=== PATIENT | female | born 1940 | race Caucasian/White ===

== ENCOUNTER 2017-04-25 23:05 | Observation (INO) | payer MEDICARE, OTHER ==
[~2017-04-25] VITALS: Ht 167.6 cm; Wt 87.0 kg
[~2017-04-25 23:05] MED LIST: ACET325 PO; ADVA100A INH; ALBU6.7H INH; APIX5TAB PO; CYMB60CA PO; DETR4CAP PO; DIOV160T8 PO; FENO50TA PO; LEVO100T4 PO; LEVO112T2 PO; MACR100C PO; METO25CR PO; POTA75TA PO; REST0.05 OU; SIMV20 PO
[2017-04-25 23:16] VITALS: BP 141/73; PULSE 82; RESP 22; TEMP 97.6; O2SAT 96
[2017-04-25] MEDS ORDERED: SODIUM CHLORIDE 0.9% FLUSH 10 ML FLUSH IVF PRN (23:45)
[2017-04-25] MEDS ORDERED: LEVO.15 PO (23:46)
[2017-04-25] MEDS ORDERED: VALS160T6 PO (23:46)
[2017-04-25] MEDS ORDERED: METO25TA3 PO (23:46)
[2017-04-25] MEDS ORDERED: APIX5TAB PO (23:46)
[2017-04-25] MEDS ORDERED: ZOCO20TA PO (23:46)
[2017-04-25] MEDS ORDERED: TIOT1AER INH (23:46)
[2017-04-25] MEDS ORDERED: TOLT1TAB16 PO (23:46)
[2017-04-25] MEDS ORDERED: FENO50TA PO (23:46)
[2017-04-25] MEDS ORDERED: CYCL7.5E EACH EYE (23:46)
[2017-04-25] MEDS ORDERED: DULO1CAP3 PO (23:46)
[2017-04-25] MEDS ORDERED: [UNRECOGNIZED DRUG - CODE] (23:46)
[2017-04-25 23:50] VITALS: RESP 16; O2SAT 98
--- NOTE | 2017-04-25 23:51 | PD ---
HPI Chief Complaint: General Weakness Time Seen by Provider: 23:44 Travel History International Travel<30 days: No Contact w/Intl Traveler<30days: No Traveled to known affect area: No History of Present Illness HPI 36-year-old female presents to the emergency department from home by EMS transport after awakening around 10:30 PM with right arm pain and shortness of breath without weakness. Patient had some referred discomfort to her jaw bilaterally. Patient denies any chest pain or pleuritic chest pain. No recent long distance travel protracted bedrest her surgical procedure. Patient has COPD and is on supplemental oxygen 2 L/m all times. Patient states that she was very active today and carried her oxygen tank with right upper extremity that today and thinks that this may have caused her to have arm pain. Patient denies any weakness of the extremity and denies any lower extremity numbness tingling or weakness. Patient's had no paresthesias. Patient's had no dizziness altered mentation visual disturbance or change in her speech. Patient feels back to normal at this time. Patient's had a febrile illness denies dysuria frequency or urgency. Patient's had no injury or fall. Patient does have history of atrial fibrillation hypertension dyslipidemia denies diabetes or tobaccoism. No history of CVA or TIA. Patient does take a look was for her atrial fibrillation. Patient did have an cardiac catheterization in 2009 that showed normal coronary vessels. Patient rates her pain 0/10 intensity. PFSH Past Medical History Narrative Medical arthritis anemia asthma COPD atrial fibrillation dyslipidemia GERD sleep apnea eye surgery breast lumpectomy; no tobacco use: Nursing notes reviewed Hx Anticoagulant Therapy: Yes (Eliquis) Anemia: Yes Arthritis: Yes Atrial Fibrillation: Yes Autoimmune Disease: No Depression: Yes Heart Rhythm Problems: Yes (A. FIB) Cancer: Yes (SKIN) Cardiac Catheterization: Yes Cardiovascular Problems: Yes (AF) High Cholesterol: Yes Chemotherapy: No COPD: Yes Cerebrovascular Accident: No Diabetes: No Diminished Hearing: No Gastrointestinal Disorders: Yes GERD: Yes Glaucoma: No Genitourinary: Yes (URINARY STRESS INCONTINENCE) Hepatitis: No Hiatal Hernia: No Hypertension: Yes Immune Disorder: No Implanted Vascular Access Dvce: No Kidney Stones: Yes (in 1968) Medical other: Yes (GERD) Musculoskeletal: Yes Neurologic: Yes Psychiatric: No Reproductive: No Respiratory: Yes (COPD) Pneumonia: Yes Sleep Apnea: Yes (NO CPAP, USES NASAL OXYGEN) Thyroid Disease: Yes Menopausal: Yes : 3 Para: 3 Past Surgical History AICD: No Arteriovenous Shunt: No Eye Surgery: Yes (MICAELA CATARACT EXTRACT.) Hysterectomy: No Insulin Pump: No Joint Replacement: No Neurologic Surgery: Yes (CERVICAL FUSION x2) Pacemaker: No Other Surgery: Yes (MICAELA BREAST LUMPECTOMY- benign, right heel repair) Social History Alcohol Use: No Tobacco Use: No (quit: 1991, smoked 2 ppd for 32 yrs) Substance Use: No Allergies-Medications (Allergen,Severity, Reaction): Coded Allergies: No Known Allergies (Unverified Adverse Reaction, Unknown, 04/25/17) Reported Meds & Prescriptions Reported Meds & Active Scripts Active Reported Duloxetine DR (Duloxetine HCl) 60 Mg Capdr 60 Mg PO DAILY Stiolto Respimat Inh (Tiotropium-Olodaterol Inh) 2.5-2.5 Mcg/Act Aero 2 Puff INH DAILY Synthroid (Levothyroxine Sodium) 150 Mcg Tab 150 Mcg PO DAILY Pot Citrate-Citric Acid Packet (Potassium Citrate/Citric Acid) 3,300 Mg-1,002 Mg Packet Tolterodine (Tolterodine Tartrate) 2 Mg Tab 2 Mg PO BID Tricor (Fenofibrate) 145 Mg Tab 145 Mg PO DAILY Takw with food. Eliquis (Apixaban) 5 Mg Tab 5 Mg PO BID Valsartan-Hydrochlorothiazide 160-25 Mg Tab 1 Tab PO DAILY Restasis Multidose Opth (Cyclosporine Opth) 0.05% Emul 1 Drop EACH EYE BID Zocor (Simvastatin) 20 Mg Tab 20 Mg PO DAILY Metoprolol Tartrate 25 Mg Tab 25 Mg PO BID Review of Systems Except as stated in HPI: all other systems reviewed are Neg Physical Exam Narrative GENERAL: Well-developed well-nourished female in no acute distress respiratory distress SKIN: Warm and dry. HEAD: Normocephalic. EYES: No scleral icterus. No injection or drainage. NECK: Supple, trachea midline. No JVD or lymphadenopathy. CARDIOVASCULAR: Regular rate and rhythm without murmurs, gallops, or rubs. RESPIRATORY: Breath sounds equal bilaterally. No accessory muscle use. GASTROINTESTINAL: Abdomen soft, non-tender, nondistended. MUSCULOSKELETAL: No cyanosis, or edema. BACK: Nontender without obvious deformity. No CVA tenderness. Data Data Last Documented VS Vital Signs Date Time Temp Pulse Resp B/P (MAP) Pulse Ox O2 Delivery O2 Flow Rate FiO2 04/25/17 23:50 16 98 Nasal Cannula 2.00 04/25/17 23:16 97.6 82 Orders Orders Complete Blood Count With Diff (04/25/17 23:44) Comprehensive Metabolic Panel (04/25/17 23:44) B-Type Natriuretic Peptide (04/25/17 23:44) Act Partial Throm Time (Ptt) (04/25/17:44) Prothrombin Time / Inr (Pt) (04/25/17 23:44) Magnesium (Mg) (04/25/17 23:44) Ckmb (Isoenzyme) Profile (04/25/17:44) Troponin I (04/25/17:44) Urinalysis - C+S If Indicated (04/25/17 23:44) Iv Access Insert/Monitor (04/25/17 23:44) Electrocardiogram (04/25/17:44) Ecg Monitoring (04/25/17 23:44) Oximetry (04/25/17 23:44) Oxygen Administration (04/25/17 23:44) Chest, Single Ap (04/25/17 23:44) Sodium Chloride 0.9% Flush (Ns Flush) (04/25/17 23:45) CKMB (04/25/17 23:47) CKMB% (04/25/17 23:47) Urine Culture (04/26/17 01:20) Sodium Chlorid 0.9% 500 Ml Inj (Ns 500 M (04/26/17 02:00) Aspirin Chew (Aspirin Chew) (04/26/17 02:00) Admit Order (Ed Use Only) (04/26/17 ) Poultry Dressing Worker / Telemetry RAMYA.Q8H (04/26/17 01:48) Diet Heart Healthy (04/26/17 Breakfast) Activity Oob With Assistance (04/26/17 01:48) Notify Dr: Other (04/26/17 01:48) Activity Bed Rest With Brp (04/26/17 01:48) Vital Signs (Adult) Q4H (04/26/17 01:48) Cardiac Rhythm .As Directed (04/26/17 01:48) Notify Dr: Other .PRN (04/26/17 01:48) Notify Parameters (04/26/17 01:48) Resp Oxygen Nasal Cannula (04/26/17 ) Ckmb (Isoenzyme) Profile (04/26/17 01:48) Ckmb (Isoenzyme) Profile (04/26/17 04:48) Troponin I (04/26/17 01:48) Troponin I (04/26/17 04:48) Electrocardiogram (04/26/17 01:48) Electrocardiogram (04/26/17 04:48) ^ Obtain (04/26/17 01:48) Sodium Chloride 0.9% Flush (Ns Flush) (04/26/17 02:00) Sodium Chloride 0.9% Flush (Ns Flush) (04/26/17 09:00) Acetaminophen (Tylenol) (04/26/17 02:00) Acetamin-Hydrocod 325-7.5 Mg ([place] 7.5 (04/26/17 02:00) Morphine Inj (Morphine Inj) (04/26/17 02:00) Nitroglycerin Sl (Nitrostat Sl) (04/26/17 02:00) Poultry Dressing Worker / Telemetry RAMYA.Q8H (04/26/17 01:48) Albuterol-Ipratropium Neb (Duoneb Neb) (04/26/17 02:00) Labs Laboratory Tests Test 04/25/17 23:47 04/26/17 01:20 White Blood Count 7.9 TH/MM3 Red Blood Count 4.77 MIL/MM3 Hemoglobin 13.5 GM/DL Hematocrit 40.4 % Mean Corpuscular Volume 84.7 FL Mean Corpuscular Hemoglobin 28.4 PG Mean Corpuscular Hemoglobin Concent 33.5 % Red Cell Distribution Width 14.5 % Platelet Count 200 TH/MM3 Mean Platelet Volume 7.4 FL Neutrophils (%) (Auto) 68.1 % Lymphocytes (%) (Auto) 20.8 % Monocytes (%) (Auto) 6.7 % Eosinophils (%) (Auto) 3.5 % Basophils (%) (Auto) 0.9 % Neutrophils # (Auto) 5.4 TH/MM3 Lymphocytes # (Auto) 1.6 TH/MM3 Monocytes # (Auto) 0.5 TH/MM3 Eosinophils # (Auto) 0.3 TH/MM3 Basophils # (Auto) 0.1 TH/MM3 CBC Comment DIFF FINAL Differential Comment Prothrombin Time 11.0 SEC Prothromb Time International Ratio 1.1 RATIO Activated Partial Thromboplast Time 21.7 SEC Blood Urea Nitrogen 21 MG/DL Creatinine 1.14 MG/DL Random Glucose 149 MG/DL Total Protein 7.1 GM/DL Albumin 3.8 GM/DL Calcium Level 9.5 MG/DL Magnesium Level 1.9 MG/DL Alkaline Phosphatase 66 U/L Aspartate Amino Transf (AST/SGOT) 39 U/L Alanine Aminotransferase (ALT/SGPT) 33 U/L Total Bilirubin 0.3 MG/DL Sodium Level 142 MEQ/L Potassium Level 3.4 MEQ/L Chloride Level 105 MEQ/L Carbon Dioxide Level 27.5 MEQ/L Anion Gap 10 MEQ/L Estimat Glomerular Filtration Rate 47 ML/MIN Total Creatine Kinase 298 U/L Creatine Kinase MB 3.7 NG/ML Creatine Kinase MB % 1.2 % Troponin I 0.04 NG/ML B-Type Natriuretic Peptide 11 PG/ML Urine Color YELLOW Urine Turbidity CLEAR Urine pH 7.0 Urine Specific [place] 1.013 Urine Protein NEG mg/dL Urine Glucose (UA) NEG mg/dL Urine Ketones NEG mg/dL Urine Occult Blood NEG Urine Nitrite NEG Urine Bilirubin NEG Urine Urobilinogen LESS THAN 2.0 MG/DL Urine Leukocyte Esterase LARGE Urine RBC 1 /hpf Urine WBC 11 /hpf Urine Squamous Epithelial Cells 1 /hpf Microscopic Urinalysis Comment CULTURE INDICATED MDM Medical Decision Making Medical Screen Exam Complete: Yes Emergency Medical Condition: Yes Medical Record Reviewed: Yes Interpretation(s) EKG normal sinus rhythm rate 90 marked left axis deviation left bundle branch block which is old since 2016 cxr: nad ck: 298; mb% 1.2% not elevated tropini I: 0.04, wnl CBC & BMP Diagram 04/25/17 23:47 Total Protein 7.1, Albumin 3.8, Calcium Level 9.5, Magnesium Level 1.9, Alkaline Phosphatase 66, Aspartate Amino Transf (AST/SGOT) 39 H, Alanine Aminotransferase (ALT/SGPT) 33, Total Bilirubin 0.3 Differential Diagnosis Dyspnea, exacerbation COPD, CHF, ACS, arrhythmia, TIA Narrative Course For 76-year-old female awakened with right forearm pain and shortness of breath that has now resolved no chest pain no pleuritic pain no altered mentation no weakness no balance disturbance no recent febrile illness cervical and patient placed on monitoring manager with continues pulse oximetry patient wears 2 L/m nasal cannula oxygen while time is has several oxygen in place at this time with O2 saturation of 99% EKG ordered along with specimen collection Presently jaw pain arm pain and shortness of breath have resolved upon arrival to the emergency department was transport with oxygen in place EKG sinus rhythm with left bundle branch block; this has been noted before patient has left bundle branch block sign cardiac enzymes pending Troponin I 0.04 within normal range; total CK 298 elevated but CK-MB percent is 1.2% not elevated 1:40 AM patient is resting comfortably with plan to admit to observation patient was given a one-time dose of aspirin 162 mg Risk: female age 89, w arm pain, sob, jaw pain with h/o htn and dyslipidemia and LBBB last cardic eval 2009 (cath with essentially normal coronary vessels); plan OBS to [employer] PROGRAMS DIRECTOR , patient is agreeable with plan Physician Communication Physician Communication [employer]GRAMS DIRECTOR obs Diagnosis Primary Impression: Chest pain Additional Impressions: History of COPD Chronic renal insufficiency Admitting Information Admitting Physician Requests: Observation Nya Quispe MD Apr 25, 2017 23:51
[2017-04-26] VITALS (12 sets, daily range): BP systolic 122–162; BP diastolic 59–79; PULSE 57–67; RESP 16–18; TEMP 97.4–98.8; O2SAT 94–99
[2017-04-26 00:14] LABS: AUTOMATED NEUTROPHIL # 5.4 TH/MM3 (1.8-7.7); BASOPHIL # 0.1 TH/MM3 (0-0.2); BASOPHIL % 0.9 % (0.0-2.0); EOSINOPHIL # 0.3 TH/MM3 (0-0.4); EOSINOPHIL % 3.5 % (0.0-4.0); HEMATOCRIT 40.4 % (35.0-46.0); HEMO FLAGS DIFF FINAL; LYMPH % 20.8 % (9.0-44.0); LYMPHOCYTE # 1.6 TH/MM3 (1.0-4.8); MEAN CELL VOLUME 84.7 FL (80.0-100.0); MEAN CORPUSCULAR HEMOGLOBIN 28.4 PG (27.0-34.0); MEAN CORPUSCULAR HGB CONC 33.5 % (32.0-36.0); MONO % 6.7 % (0.0-8.0); NEUT % 68.1 % (16.0-70.0); PLATELET COUNT 200 TH/MM3 (150-450); RED BLOOD COUNT 4.77 MIL/MM3 (4.00-5.30); RED CELL DISTRIBUTION WIDTH 14.5 % (11.6-17.2); WHITE BLOOD COUNT 7.9 TH/MM3 (4.0-11.0)
--- NOTE | 2017-04-26 00:22 | RADRPT ---
EXAM DATE/TIME: 04/25/2017 23:57 [facility] COMPARISON: No previous studies available for comparison. INDICATIONS : Chest pain and right sided weakness MEDICAL HISTORY : Chronic obstructive pulmonary disease. A-Fib SURGICAL HISTORY : Fusion, cervical. ENCOUNTER: Initial ACUITY: 1 day PAIN SCORE: 7/10 LOCATION: Bilateral chest FINDINGS: Cardiomegaly. No definite consolidation or effusion. ACDF hardware overlies the spine. CONCLUSION: No acute disease. Jose De Jesus De Los Santos MD on April 26, 2017 at 0:20 Board Certified Radiologist. This report was verified electronically.
[2017-04-26 00:27] LABS: APTT (PATIENT) 21.7 SEC (24.3-30.1); INTERNATIONAL NORMALIZED RATIO 1.1 RATIO
[2017-04-26 00:37] LABS: ALKALINE PHOSPHATASE 66 U/L (45-117); CREATINE KINASE 298 U/L (26-192); TOTAL BILIRUBIN ADULT 0.3 MG/DL (0.2-1.0)
[2017-04-26 00:38] LABS: ALT (GPT) 33 U/L (10-53); ANION GAP 10 MEQ/L (5-15); AST (GOT) 39 U/L (15-37); BICARBONATE 27.5 MEQ/L (21.0-32.0); BLOOD UREA NITROGEN 21 MG/DL (7-18); CHLORIDE 105 MEQ/L (98-107); GLOMERULAR FILTRATION RATE 47 ML/MIN (>89); MAGNESIUM 1.9 MG/DL (1.5-2.5); POTASSIUM 3.4 MEQ/L (3.5-5.1); SODIUM (NA) 142 MEQ/L (136-145)
[2017-04-26 00:50] LABS: CKMB 3.7 NG/ML (0.5-3.6)
[2017-04-26 01:38] LABS: BLOOD, URINE NEG (NEG); COMMENT (UR) CULTURE INDICATED; CULTURE IF INDICATED CULTURE INDICATED; GLUCOSE,URINE NEG (NEG); KETONE, URINE NEG (NEG); NITRITE,URINE NEG (NEG); SQUAMOUS EPITHELIAL CELL URINE 1 /hpf (0-5); URINE COLOR YELLOW (YELLW/STRAW)
[2017-04-26] MEDS ORDERED: ACETAMINOPHEN 500 MG CPLT PO PRN (02:00)
[2017-04-26] MEDS ORDERED: RESP: ALBUTEROL 2.5 MG/IPRATROPIUM 0.5 MG NEB (PRN) NEB ×2 (02:00→10:15)
[2017-04-26] MEDS ORDERED: SODIUM CHLORIDE 0.9% FLUSH 10 ML FLUSH IV FLUSH PRN (02:00)
[2017-04-26] MEDS ORDERED: ACETAMINOPHEN/HYDROcodone 325 MG/7.5 MG TAB PO PRN (02:00)
[2017-04-26] MEDS ORDERED: SODIUM CHLORID 0.9% 500 ML INJ 500 ML IV ONE (02:00)
[2017-04-26] MEDS ORDERED: MORPHINE SULFATE 4 MG/ML INJ IV PUSH PRN (02:00)
[2017-04-26] MEDS ORDERED: ASPIRIN 81 MG CHEW TAB CHEW ONE (02:00)
[2017-04-26] MEDS ORDERED: NITROGLYCERIN 0.4 MG SL 25 TABS/BTL SL PRN (02:00)
[2017-04-26 03:51] LABS: CKMB 3.7 NG/ML (0.5-3.6)
[2017-04-26 06:35] LABS: CKMB 4.1 NG/ML (0.5-3.6)
[2017-04-26] MEDS ORDERED: NITROGLYCERIN 2% OINT 1 GM PACKET TOPICAL ONE (07:15)
[2017-04-26] MEDS: SODIUM CHLORIDE 0.9% FLUSH 10 ML FLUSH IV FLUSH SCH ×2 (07:16→20:10)
[2017-04-26] MEDS ORDERED: NON-FORMULARY DRUG (Valsartan-Hydrochlorothiazide 1 TAB) PO SCH (10:15)
--- NOTE | 2017-04-26 10:17 | HHI.HP ---
HPI Service [facility] Primary Care Physician Unknown Admission Diagnosis chest pain; h/o copd Diagnoses: Chief Complaint: Right arm pain, fast heart rate Travel History International Travel<30 Days: No Contact w/Intl Traveler <30 Da: No Traveled to Known Affected Are: No History of Present Illness The patient is a 76-year-old female with a past medical history of COPD and atrial fibrillation who is presenting to the hospital with right upper extremity pain, shortness of breath and fast heart rate. The patient says she woke up in the middle of the night and found that her right elbow and some fingers on the right hand were hurting. She also described a weird feeling that was something like dizziness or lightheadedness. She did experience shortness of breath associated with this. She checked her pulse oximeter at home and found her heart rate went anywhere from 141-68 and her oxygen saturation on 2 L of nasal cannula went as low as 79%. She said she started to panic. She did not have any sweating associated with this. She woke her kids up at that time. She denied any chest pain. The patient says she has had no energy over the past few months. She feels pretty weak and has a hard time walking in a straight line. She says her a few months ago. She also recently lost a sister and her son 2 years ago. She says she has been having depression and anxiety. She denies any nausea, vomiting or diarrhea. The patient says that she was lifting her oxygen tank a lot the other day so she thought that might be a contributing factor to her right arm pain. Review of Systems Except as stated in HPI: all other systems reviewed are Neg Past Family Social History Past Medical History Osteoarthritis COPD Atrial fibrillation Dyslipidemia HTN GERD Obstructive sleep apnea Incontinence Anxiety/ Depression Hypothyroidism Past Surgical History Eye surgery Breast lumpectomy Allergies: Coded Allergies: No Known Allergies (Unverified Allergy, Unknown, 04/26/17) Active Ordered Medications Current Medications Medications (Trade) Dose Ordered Sig/Mack Route Start Time Stop Time Status Last Admin (NS Flush) 2 ml UNSCH PRN IVF 04/25/17 23:45 (NS Flush) 2 ml UNSCH PRN IV FLUSH 04/26/17 02:00 (NS Flush) 2 ml BID IV FLUSH 04/26/17 09:00 04/26/17 07:16 (Tylenol) 500 mg Q4H PRN PO 04/26/17 02:00 ([place] 7.5-325 Mg) 1 tab Q4H PRN PO 04/26/17 02:00 (Morphine Inj) 2 mg Q4H PRN IV PUSH 04/26/17 02:00 (Nitrostat Sl) 0.4 mg Q5M PRN SL 04/26/17 02:00 (Eliquis) 5 mg BID PO 04/26/17 10:15 UNV (Cymbalta Dr) 60 mg DAILY PO 04/27/17 09:00 UNV (Tricor) 145 mg DAILY PO 04/27/17 09:00 UNV (Synthroid) 150 mcg DAILY PO 04/26/17 10:15 UNV (Lopressor) 25 mg BID PO 04/26/17 10:15 UNV Non-Formulary Medication 1 drop BID EACH EYE 04/26/17 21:00 UNV Non-Formulary Medication 20 mg DAILY PO 04/26/17 10:15 UNV Non-Formulary Medication 2 mg BID PO 04/26/17 10:15 UNV Non-Formulary Medication 1 tab DAILY PO 04/26/17 10:15 UNV (Duoneb Neb) 1 ampule Q2HR NEB PRN NEB 04/26/17 10:15 UNV Family History Multiple sclerosis Social History The patient quit smoking about 26 years ago. She does not drink alcohol. Physical Exam Vital Signs Vital Signs Date Time Temp Pulse Resp B/P (MAP) Pulse Ox O2 Delivery O2 Flow Rate FiO2 04/26/17 09:06 63 04/26/17 07:33 98.0 60 16 134/70 (91) 97 04/26/17 03:23 98.7 59 18 122/60 (80) 97 04/26/17 01:55 67 18 133/64 (87) 99 04/25/17 23:50 98 Nasal Cannula 2.00 04/25/17 23:50 16 98 Nasal Cannula 2.00 04/25/17 23:50 98 Nasal Cannula 2.00 04/25/17 23:16 97.6 82 22 141/73 (95) 96 Nasal Cannula 2.00 Physical Exam GENERAL: This is a well-nourished, well-developed patient, in no apparent distress. SKIN: No rashes, ecchymoses or lesions. Cool and dry. HEAD: Atraumatic. Normocephalic. No temporal or scalp tenderness. EYES: Pupils equal round and reactive. Extraocular motions intact. No scleral icterus. No injection or drainage. ENT: Nose without bleeding, purulent drainage or septal hematoma. Throat without erythema, tonsillar hypertrophy or exudate. Uvula midline. Airway patent. NECK: Trachea midline. No JVD or lymphadenopathy. Supple, nontender, no meningeal signs. CARDIOVASCULAR: Regular rate and rhythm without murmurs, gallops, or rubs. RESPIRATORY: Clear to auscultation. Breath sounds equal bilaterally. No wheezes , rales, or rhonchi. GASTROINTESTINAL: Abdomen soft, non-tender, nondistended. No hepato-splenomegaly , or palpable masses. No guarding. MUSCULOSKELETAL: Extremities without clubbing, cyanosis, or edema. No joint tenderness, effusion, or edema noted. NEUROLOGICAL: Awake and alert. Cranial nerves II through XII intact. Motor and sensory grossly within normal limits. Five out of 5 muscle strength in all muscle groups. Normal speech. PSYCH: Mood and affect appropriate. Laboratory Laboratory Tests Test 04/25/17 23:47 04/26/17 01:20 04/26/17 02:15 04/26/17 05:20 White Blood Count 7.9 Red Blood Count 4.77 Hemoglobin 13.5 Hematocrit 40.4 Mean Corpuscular Volume 84.7 Mean Corpuscular Hemoglobin 28.4 Mean Corpuscular Hemoglobin Concent 33.5 Red Cell Distribution Width 14.5 Platelet Count 200 Mean Platelet Volume 7.4 Neutrophils (%) (Auto) 68.1 Lymphocytes (%) (Auto) 20.8 Monocytes (%) (Auto) 6.7 Eosinophils (%) (Auto) 3.5 Basophils (%) (Auto) 0.9 Neutrophils # (Auto) 5.4 Lymphocytes # (Auto) 1.6 Monocytes # (Auto) 0.5 Eosinophils # (Auto) 0.3 Basophils # (Auto) 0.1 CBC Comment DIFF FINAL Differential Comment Prothrombin Time 11.0 Prothromb Time International Ratio 1.1 Activated Partial Thromboplast Time 21.7 Blood Urea Nitrogen 21 Creatinine 1.14 Random Glucose 149 Total Protein 7.1 Albumin 3.8 Calcium Level 9.5 Magnesium Level 1.9 Alkaline Phosphatase 66 Aspartate Amino Transf (AST/SGOT) 39 Alanine Aminotransferase (ALT/SGPT) 33 Total Bilirubin 0.3 Sodium Level 142 Potassium Level 3.4 Chloride Level 105 Carbon Dioxide Level 27.5 Anion Gap 10 Estimat Glomerular Filtration Rate 47 Total Creatine Kinase 298 258 259 Creatine Kinase MB 3.7 3.7 4.1 Creatine Kinase MB % 1.2 1.4 1.6 Troponin I 0.04 0.38 0.58 B-Type Natriuretic Peptide 11 Urine Color YELLOW Urine Turbidity CLEAR Urine pH 7.0 Urine Specific [place] 1.013 Urine Protein NEG Urine Glucose (UA) NEG Urine Ketones NEG Urine Occult Blood NEG Urine Nitrite NEG Urine Bilirubin NEG Urine Urobilinogen LESS THAN 2.0 Urine Leukocyte Esterase LARGE Urine RBC 1 Urine WBC 11 Urine Squamous Epithelial Cells 1 Microscopic Urinalysis Comment CULTURE INDICATED Date/Time Source Procedure Growth Status 04/26/17 01:20 Urine Clean Catch Urine Culture Pending Received Result Diagram: 04/25/[id number] Imaging Last Impressions Chest X-Ray 04/25/172343 Signed Impressions: Service Date/Time: Tuesday, April 25, 2017 23:57 - CONCLUSION: No acute disease. MD William Lora VTE Risk Assessment William VTE Risk Assessment: Mod/High Risk (score >= 2) Caprini Risk Assessment Model Point Value = 1 Point Value = 2 Point Value = 3 Point Value = 5 Age 41-60 Minor surgery BMI > 25 kg/m2 Swollen legs Varicose veins or History of unexplained or recurrent spontaneous Oral contraceptives or hormone replacement Sepsis (< 1 month) Serious lung disease, including pneumonia (< 1 month) Abnormal pulmonary function Acute myocardial infarction Congestive heart failure (< 1 month) History of inflammatory bowel disease Medical patient at bed rest Age 61-74 Arthroscopic surgery Major open surgery (> 45 min) Laparoscopic surgery (> 45 min) Malignancy Confined to bed (> 72 hours) Immobilizing plaster cast Central venous access Age >= 75 History of VTE Family history of VTE Factor V Leiden Prothrombin [id number] Lupus anticoagulant Anticardiolipin antibodies Elevated serum homocysteine Heparin-induced thrombocytopenia Other congenital or acquired thrombophilia Stroke (< 1 month) Elective arthroplasty Hip, pelvis, or leg fracture Acute spinal cord injury (< 1 month) Prophylaxis Regimen Total Risk Factor Score Risk Level Prophylaxis Regimen 0-1 Low Early ambulation 2 Moderate Order ONE of the following: *Sequential Compression Device (SCD) *Heparin 5000 units SQ BID 3-4 Higher Order ONE of the following medications: *Heparin 5000 units SQ TID *Enoxaparin/Lovenox 40 mg SQ daily (WT < 150 kg, CrCl > 30 mL/min) *Enoxaparin/Lovenox 30 mg SQ daily (WT < 150 kg, CrCl > 10-29 mL/min) *Enoxaparin/Lovenox 30 mg SQ BID (WT < 150 kg, CrCl > 30 mL/min) AND/OR *Sequential Compression Device (SCD) 5 or more Highest Order ONE of the following medications: *Heparin 5000 units SQ TID (Preferred with Epidurals) *Enoxaparin/Lovenox 40 mg SQ daily (WT < 150 kg, CrCl > 30 mL/min) *Enoxaparin/Lovenox 30 mg SQ daily (WT < 150 kg, CrCl > 10-29 mL/min) *Enoxaparin/Lovenox 30 mg SQ BID (WT < 150 kg, CrCl > 30 mL/min) AND *Sequential Compression Device (SCD) Assessment and Plan Assessment and Plan Elevated troponins Possibly secondary to atrial fibrillation as she says her heart rate went as high as 141 at home. Troponin currently at 0.58. She also had respiratory distress associated with anxiety which could have contributed. EKG with known left bundle branch block. She denies any chest pain. - Continue to trend troponins. - Monitor on telemetry. - Cardiology evaluation pending. - Echocardiogram ordered. - Continue cardiac regimen. - check a lipid profile and A1c. Right arm pain The patient describes pain in her right elbow and her right fingers. Her symptoms are getting better. She thinks it may have been secondary to carrying oxygen tanks the other day. Examination was unremarkable. - Pain control as needed. - Physical therapy. Atrial fibrillation The patient said her monitor at home showed a heart rate is high as 141 prior to presentation. Heart rate currently controlled. - continue metoprolol and Eliquis. - monitor on telemetry. - echo pending. COPD On 2L NC at home. Breathing seems stable at this time. CXR unremarkable. - continue home regimen. Hold Spiriva and give Duonebs as needed. - incentive spirometry. Weakness/ Depression The patient endorses low energy and weakness. Likely secondary to depression as she endorses a depressed mood and anxiety. - PCP follow-up for trial of antidepressants. - check TSH, B12. - PT eval. Renal insufficiency Creatinine seems stable. - Follow BMP and avoid nephrotoxic agents. Hypokalemia Possibly secondary to decreased by mouth intake. - Replete and monitor. PPx: Eliquis Code Status Full Discussed Condition With Pt, chest pain center Zeferino Akins DO Apr 26, 2017 10:17
[2017-04-26] MEDS: METOPROLOL TARTRATE 25 MG TAB PO SCH ×2 (10:28→20:09)
[2017-04-26] MEDS: LEVOTHYROXINE SODIUM 150 MCG TAB PO SCH (10:28)
[2017-04-26] MEDS ORDERED: POTASSIUM CHLORIDE 25 MEQ EFFERVESCENT TAB PO ONE (10:30)
[2017-04-26] MEDS: APIXABAN 5 MG TABLET PO SCH ×2 (10:31→20:09)
[2017-04-26] MEDS: HYDROCHLOROTHIAZIDE 25 MG TAB PO SCH (10:31)
[2017-04-26] MEDS: VALSARTAN 160 MG TAB PO SCH (10:31)
[2017-04-26] MEDS: PRAVASTATIN SOD 40 MG TAB PO SCH (10:32)
--- NOTE | 2017-04-26 14:02 | EKG ---
Date Performed: 04/26/2017 Time Performed: 05:55:18 PTAGE: 76 years EKG: Sinus rhythm LEFT BUNDLE BRANCH BLOCK ABNORMAL ECG PREVIOUS TRACING : 04/26/2017 03.30 Since previous tracing, no significant change noted DOCTOR: Keven Hampton Interpretating Date/Time 04/26/2017 14:01:16
--- NOTE | 2017-04-26 14:15 | MB ---
cc: JACKSON JACOB DO DATE OF CONSULTATION: 04/26/2017. REASON FOR CONSULTATION: Elevated troponin. HISTORY OF PRESENT ILLNESS: Dorinda Rivera is a pleasant 76-year-old female who sees my partner, Dr. Zurita, in the office who presented to the [facility] Emergency Room on April 25, 2017 due to palpitations. She states that she was in her normal health and no changes recently when she was awoken last night with right elbow and finger pain. She states that she has never had this before. She notes that she had been lifting her oxygen tank a lot the day before and thought that it may be a contributing factor to her right arm pain. During this, she was also noticing that her heart was racing and she was short of breath. She placed her pulse ox on her finger and her heart rates were around 140 but jumping all over the place and her pulse ox was around 79. She said that she was dizzy and lightheaded during the episode. She denies chest pain at all before, during or after the event. Because of the episode, she decided she should come into the emergency room. When she calmed down, her heart rate seemed to decrease and she started to feel better. PAST MEDICAL HISTORY: 1. Atrial fibrillation 2. Osteoarthritis 3. COPD 4. Dyslipidemia. 5. Hypertension. 6. Gastroesophageal reflux disease (GERD). 7. Obstructive sleep apnea. 8. Anxiety / depression. 9. Hypothyroidism. PAST SURGICAL HISTORY: 1. Eye surgery. 2. Breast lumpectomy. ALLERGIES: NO KNOWN DRUG ALLERGIES. MEDICATIONS: 1. Stiolto two puffs daily. 2. Eliquis 5 milligrams twice a day. 3. Tricor 145 micrograms daily. 4. Zocor 20 milligrams daily. 5. Metoprolol tartrate 25 milligrams twice a day. 6. Losartan / hydrochlorothiazide 160 / 25 daily. 7. Duloxetine 60 milligrams daily. 8. Cyclosporin one drop each eye twice a day. 9. Synthroid 150 micrograms daily. 10. Tolterodine 2 milligrams twice a day. FAMILY HISTORY: Denies premature coronary artery disease or sudden cardiac within the family. SOCIAL HISTORY: The patient previously smoked but quit around 26 years ago. She does not drink alcohol. REVIEW OF SYSTEMS Fourteen systems were reviewed including osteopathic with pertinent positives and negatives as above; otherwise negative. PHYSICAL EXAMINATION: VITAL SIGNS: Temperature 97.4, heart rate 63, blood pressure 135/74, respirations 16, pulse ox 97% on 2 liters. GENERAL: In general, the patient appears well and in no acute distress, alert awake and oriented x3. HEAD, EYES, EARS, NOSE, THROAT: Extraocular muscles intact. Mucous membranes moist. NECK: The neck is supple. No JVD at 45 degrees. No carotid bruits heard bilaterally. Carotid upstroke is brisk in nature. HEART: Regular rate and rhythm. Positive first and second heart sounds with no noted murmurs, gallops or rubs. LUNGS: Clear to auscultation bilaterally. No wheezes, rales or rhonchi. ABDOMEN: The abdomen is soft, nontender and nondistended. No organomegaly noted. EXTREMITIES: Trace edema bilaterally but no clubbing or cyanosis. NEUROLOGIC: No focal deficits. SKIN: Warm, dry and intact. OSTEOPATHIC: Osteopathically, mild kyphoscoliosis, no lordosis or paraspinal tender points. LAB WORK: Hemoglobin 13.5, hematocrit 40.4, platelet count 200,000. Potassium 3.4, BUN 21, creatinine 1.14. Troponin 0.58. EKGS: Electrocardiogram (April 26, 2017 at 0555): Sinus rhythm at 60 beats per minute, left bundle branch block. IMPRESSION: 1. Elevated troponin, possible type 1 versus type 2. 2. Atrial fibrillation with rapid ventricular response with known history of atrial fibrillation on Eliquis therapy. 3. Chronic left bundle branch block. 4. No chest pain. 5. Right arm pain. 6. COPD on 2 liters home oxygen. 7. Hypertension. RECOMMENDATIONS: 1. Ms. Rivera presented due to palpitations and shortness of breath. This was felt to be possibly atrial fibrillation with rapid ventricular response as it appears that her heart rate jumped all over while she had on her pulse oximeter. 2. She did have a mildly elevated troponin and overall did not have any chest pain. This may be due to have the overall event with atrial fibrillation with rapid ventricular response as well as her hypoxia. 3. We will plan for a pharmacologic nuclear stress test in the morning. She will be n.p.o. after midnight. If the stress test is positive, I will discuss with her the consideration of cardiac catheterization. If the stress test is negative, then I will discuss with her about atrial fibrillation control and consideration of rhythm analysis outpatient to further determine if there are any other arrhythmias. 4. She will continue on her Eliquis for atrial fibrillation. If stress test is positive, then this will need to be held preoperatively. 5. She did wake up with right arm pain and still had some of this into this morning. This does appear to be somewhat musculoskeletal and not believed to be atypical chest pain or due to coronary insufficiency. Thank you for allowing me to see Dorinda Rivera. If there are any questions, please do not hesitate to call. Jackson Jacob DO VGP/JCC /1:33 PM /1:58 PM
--- NOTE | 2017-04-26 14:23 | EKG ---
Date Performed: 04/25/2017 Time Performed: 23:18:49 PTAGE: 76 years EKG: Sinus rhythm MARKED LEFT AXIS DEVIATION LEFT BUNDLE BRANCH BLOCK ABNORMAL ECG PREVIOUS TRACING : 08/24/2015 19.57 Since previous tracing, no significant change noted DOCTOR: Keven Hampton Interpretating Date/Time 04/26/2017 14:21:14
--- NOTE | 2017-04-26 14:25 | EKG ---
Date Performed: 04/26/2017 Time Performed: 03:30:06 PTAGE: 76 years EKG: Sinus rhythm MARKED LEFT AXIS DEVIATION LEFT BUNDLE BRANCH BLOCK ABNORMAL ECG PREVIOUS TRACING : 04/25/2017 23.18 Since previous tracing, no significant change noted DOCTOR: Keven Hampton Interpretating Date/Time 04/26/2017 14:23:58
[2017-04-26] MEDS: TOLTERODINE TARTRATE 4 MG CAP LA PO SCH (16:41)
[2017-04-26] MEDS ORDERED: CYCLOSPORINE EACH EYE SCH (21:00)
[2017-04-26 22:47] LABS: HDL CHOLESTEROL 40.4 MG/DL (40.0-60.0)
[2017-04-27 04:34] VITALS: BP 177/81; PULSE 61; RESP 18; TEMP 98.8; O2SAT 94
[2017-04-27] MEDS: LEVOTHYROXINE SODIUM 150 MCG TAB PO SCH (05:26)
[2017-04-27 05:41] LABS: ALT (GPT) 30 U/L (10-53); ANION GAP 8 MEQ/L (5-15); AST (GOT) 37 U/L (15-37); BICARBONATE 26.3 MEQ/L (21.0-32.0); BLOOD UREA NITROGEN 20 MG/DL (7-18); CHLORIDE 111 MEQ/L (98-107); GLOMERULAR FILTRATION RATE 54 ML/MIN (>89); POTASSIUM 4.5 MEQ/L (3.5-5.1); SODIUM (NA) 145 MEQ/L (136-145)
[2017-04-27 05:43] LABS: ALKALINE PHOSPHATASE 60 U/L (45-117); TOTAL BILIRUBIN ADULT 0.4 MG/DL (0.2-1.0)
[2017-04-27] MEDS: VALSARTAN 160 MG TAB PO SCH (07:49)
[2017-04-27] MEDS: HYDROCHLOROTHIAZIDE 25 MG TAB PO SCH (07:49)
[2017-04-27] MEDS: PRAVASTATIN SOD 40 MG TAB PO SCH (07:49)
[2017-04-27] MEDS: APIXABAN 5 MG TABLET PO SCH (07:49)
[2017-04-27] MEDS: TOLTERODINE TARTRATE 4 MG CAP LA PO SCH (07:50)
[2017-04-27] MEDS: SODIUM CHLORIDE 0.9% FLUSH 10 ML FLUSH IV FLUSH SCH (07:50)
[2017-04-27 07:52] VITALS: O2SAT 95
[2017-04-27 08:00] VITALS: PULSE 61
[2017-04-27 08:29] VITALS: BP 146/71; PULSE 61; RESP 16; TEMP 98.3; O2SAT 95
[2017-04-27] MEDS ORDERED: FENOFIBRATE 145 MG TAB PO SCH (09:00)
[2017-04-27] MEDS ORDERED: DULoxetine HCl DR 60 MG CAP PO SCH (09:00)
[2017-04-27] MEDS ORDERED: REGADENOSON INJ 0.4 MG/5 ML SYR ONE (09:28)
--- NOTE | 2017-04-27 11:15 | RADRPT ---
EXAM DATE/TIME: 04/27/2017 09:11 [place] COMPARISON: No previous studies available for comparison. INDICATIONS : Elevated troponins. Atrial fibrillation. DOSE: 25.9 mCi Tc99m Myoview at stress. 8.5 mCi Tc99m Myoview at rest. 0.4 mg Lexiscan STRESS SYMPTOMS: None. EJECTION FRACTION: 61% MEDICAL HISTORY : Carcinoma, basal cell. Chronic obstructive pulmonary disease. Hypertension. SURGICAL HISTORY : Bilateral breast lumpectomy. ENCOUNTER: Initial ACUITY: 1 day PAIN SCALE: 2/10 LOCATION: Bilateral chest TECHNIQUE: The patient underwent pharmacologic stress with infusion of prescribed dose. Continuous ECG tracing was monitored during stress. Gated SPECT imaging was performed after stress and conventional SPECT i maging was performed at rest. The examination was performed on a SPECT/CT scanner, both attenuation and non-corrected datasets were reviewed. FINDINGS: DISTRIBUTION: The maximum perfused segment at stress is in the anterior wall. PERFUSION STUDY: A small fixed perfusion abnormality is identified at the base of the intraventricular septum. There i s associated abnormal wall motion. The pattern of perfusion at stress is otherwise within normal limi ts. GATED STUDY: Abnormal septal movement. Wall motion is otherwise intact with normal thickening without additional h ypokinetic or dyskinetic segments. CONCLUSION: 1. Small fixed perfusion abnormalities at the base of the septum. 2. No other fixed or reversible perfusion abnormalities. 3. Abnormal septal movement corresponding to perfusion abnormality. 4. Normal ejection fraction. RISK CATEGORY: Low (<1% Annual Mortality Rate) Rogerio Painting MD on April 27, 2017 at 11:10 Board Certified Radiologist. This report was verified electronically.
[2017-04-27 11:24] VITALS: BP 126/90; PULSE 66; RESP 18; TEMP 97.5; O2SAT 98
--- NOTE | 2017-04-27 11:43 | HHI.DCPOC ---
Discharge Care Plan Diagnosis: (1) History of COPD (2) Chronic renal insufficiency (3) Chest pain Goals to Promote Your Health * To prevent worsening of your condition and complications * To maintain your health at the optimal level Directions to Meet Your Goals Take your medications as prescribed Follow your dietary instruction Follow activity as directed Keep your appointments as scheduled Take your immunizations and boosters as scheduled If your symptoms worsen call your PCP, if no PCP go to Urgent Care Center or Emergency Room Smoking is Dangerous to Your Health. Avoid second hand smoke Call the 24-hour hour crisis hotline for domestic abuse at Zeferino Harmon DO Apr 27, 2017 11:43
--- NOTE | 2017-04-27 11:43 | PD.CARD.PN ---
Subjective Subjective Remarks No events overnight No chest pain Objective Medications Current Medications Medications (Trade) Dose Ordered Sig/Mack Route Start Time Stop Time Status Last Admin (NS Flush) 2 ml UNSCH PRN IVF 04/25/17 23:45 (NS Flush) 2 ml UNSCH PRN IV FLUSH 04/26/17 02:00 (NS Flush) 2 ml BID IV FLUSH 04/26/17 09:00 04/27/17 07:50 (Tylenol) 500 mg Q4H PRN PO 04/26/17 02:00 ([place] 7.5-325 Mg) 1 tab Q4H PRN PO 04/26/17 02:00 (Morphine Inj) 2 mg Q4H PRN IV PUSH 04/26/17 02:00 (Nitrostat Sl) 0.4 mg Q5M PRN SL 04/26/17 02:00 (Eliquis) 5 mg BID PO 04/26/17 10:45 Future Hold 04/27/17 07:49 (Cymbalta Dr) 60 mg DAILY PO 04/27/17 09:00 04/27/17 07:49 (Tricor) 145 mg DAILY PO 04/27/17 09:00 04/27/17 07:49 (Synthroid) 150 mcg DAILY@0600 PO 04/26/17 10:45 04/27/17 05:26 (Lopressor) 25 mg BID PO 04/26/17 10:45 04/26/17 20:09 Patient Own Medication PT OWN MED: RESTA... BID EACH EYE 04/26/17 21:00 04/26/17 21:00 (Pravachol) 40 mg DAILY PO 04/26/17 10:30 04/27/17 07:49 (Detrol La) 4 mg DAILY PO 04/26/17 10:30 04/27/17 07:50 (Duoneb Neb) 1 ampule Q2HR NEB PRN NEB 04/26/17 10:15 (Diovan) 160 mg DAILY PO 04/26/17 10:45 04/27/17 07:49 (Hydrodiuril) 25 mg DAILY PO 04/26/17 10:45 04/27/17 07:49 (Vitamin B12 Inj) 1,000 mcg ONCE ONCE IM 04/27/17 11:45 04/27/17 11:46 UNV Vital Signs / I&O Vital Signs Date Time Temp Pulse Resp B/P (MAP) Pulse Ox O2 Delivery O2 Flow Rate FiO2 04/27/17 11:24 97.5 66 18 126/90 (102) 98 04/27/17 08:29 98.3 61 16 146/71 (96) 95 04/27/17 08:00 61 04/27/17 04:34 98.8 61 18 177/81 (113) 94 04/26/17 23:19 98.8 57 18 162/77 (105) 94 04/26/17 20:51 98.0 67 18 142/79 (100) 97 04/26/17 20:00 98 Nasal Cannula 2.00 04/26/17 16:15 98.6 63 18 127/59 (81) 96 04/26/17 15:24 95 Nasal Cannula 2.00 04/26/17 15:00 59 04/26/17 12:00 64 04/26/17 11:49 97.4 63 16 135/74 (94) 97 Physical Exam GENERAL: NAD, AAOx3 SKIN: Warm and dry. HEAD: Atraumatic. Normocephalic. EYES: Pupils equal and round. No scleral icterus. No injection or drainage. ENT: No nasal bleeding or discharge. Mucous membranes pink and moist. NECK: Trachea midline. No JVD. CARDIOVASCULAR: Irregularly irregular RESPIRATORY: No accessory muscle use. Clear to auscultation. Breath sounds equal bilaterally. GASTROINTESTINAL: Abdomen soft, non-tender, nondistended. Hepatic and splenic margins not palpable. MUSCULOSKELETAL: Extremities without clubbing, cyanosis, or edema. No obvious deformities. NEUROLOGICAL: Awake and alert. No obvious cranial nerve deficits. Motor grossly within normal limits. Five out of 5 muscle strength in the arms and legs. Normal speech. PSYCHIATRIC: Appropriate mood and affect; insight and judgment normal. Laboratory Laboratory Tests Test 04/26/17 13:25 04/27/17 04:51 Troponin I 0.27 NG/ML Vitamin B12 Level 279 PG/ML Thyroid Stimulating Hormone 3rd Gen 3.670 uIU/ML Blood Urea Nitrogen 20 MG/DL Creatinine 1.01 MG/DL Random Glucose 112 MG/DL Total Protein 6.5 GM/DL Albumin 3.4 GM/DL Calcium Level 9.2 MG/DL Alkaline Phosphatase 60 U/L Aspartate Amino Transf (AST/SGOT) 37 U/L Alanine Aminotransferase (ALT/SGPT) 30 U/L Total Bilirubin 0.4 MG/DL Sodium Level 145 MEQ/L Potassium Level 4.5 MEQ/L Chloride Level 111 MEQ/L Carbon Dioxide Level 26.3 MEQ/L Anion Gap 8 MEQ/L Estimat Glomerular Filtration Rate 54 ML/MIN Imaging Last 24 hours Impressions Myocardial Perfusion Scan Nuc Med 04/27/17 0600 Signed Impressions: Service Date/Time: Thursday, April 27, 2017 09:11 - CONCLUSION: 1. Small fixed perfusion abnormalities at the base of the septum. 2. No other fixed or reversible perfusion abnormalities. 3. Abnormal septal movement corresponding to perfusion abnormality. 4. Normal ejection fraction. RISK CATEGORY: Low (<1%% Annual Mortality Rate) Rogerio Painting MD Assessment and Plan Problem List: (1) Atrial fibrillation ICD Codes: I48.91 - Atrial fibrillation Status: Acute (2) History of COPD ICD Codes: Z87.09 - Personal history of other diseases of the respiratory system Status: Acute (3) Chronic renal insufficiency ICD Codes: N18.9 - Chronic kidney disease, unspecified Status: Acute (4) Hypothyroidism ICD Codes: E03.9 - Hypothyroidism Status: Acute (5) Chronic kidney disease, stage III (moderate) ICD Codes: N18.3 - Chronic kidney disease, stage III (moderate) Status: Acute (6) Obstructive sleep apnea ICD Codes: G47.33 - Obstructive sleep apnea Status: Acute Assessment and Plan 1) Episode of Afib with RVR with SOB No chest pain 2) Mildly elevated trop Stress test showing no ischemia 3) Cardiovascularly stable for discharge Follow up with Dr. Zurita for consideration of rhythm analysis to determine amount of RVR Jackson Dawson DO Apr 27, 2017 11:43
[2017-04-27] MEDS ORDERED: CYANOCOBALAMIN 1000 MCG/ML VIAL IM ONE (11:45)
--- NOTE | 2017-04-27 11:51 | HHI.PR ---
Subjective Remarks The patient was feeling well. She wanted to eat something. She mentioned she had some cramping in her upper thighs. Otherwise no acute concerns. Discussed with cardiology. Objective Vitals Vital Signs Date Time Temp Pulse Resp B/P (MAP) Pulse Ox O2 Delivery O2 Flow Rate FiO2 04/27/17 11:24 97.5 66 18 126/90 (102) 98 04/27/17 08:29 98.3 61 16 146/71 (96) 95 04/27/17 08:00 61 04/27/17 07:52 95 Nasal Cannula 2.00 04/27/17 04:34 98.8 61 18 177/81 (113) 94 04/26/17 23:19 98.8 57 18 162/77 (105) 94 04/26/17 20:51 98.0 67 18 142/79 (100) 97 04/26/17 20:00 98 Nasal Cannula 2.00 04/26/17 16:15 98.6 63 18 127/59 (81) 96 04/26/17 15:24 95 Nasal Cannula 2.00 04/26/17 15:00 59 04/26/17 12:00 64 04/26/17 11:49 97.4 63 16 135/74 (94) 97 Result Diagram: 04/25/17 2347 04/27/17 0451 Imaging Last Impressions Myocardial Perfusion Scan Nuc Med 04/27/17 0600 Signed Impressions: Service Date/Time: Thursday, April 27, 2017 09:11 - CONCLUSION: 1. Small fixed perfusion abnormalities at the base of the septum. 2. No other fixed or reversible perfusion abnormalities. 3. Abnormal septal movement corresponding to perfusion abnormality. 4. Normal ejection fraction. RISK CATEGORY: Low (<1%% Annual Mortality Rate) Rogerio Painting MD Chest X-Ray 04/25/17 1907 Signed Impressions: Service Date/Time: Tuesday, April 25, 2017 23:57 - CONCLUSION: No acute disease. Jose De Jesus De Los Santos MD Objective Remarks GENERAL: This is a well-nourished, well-developed patient, in no apparent distress. SKIN: No rashes, ecchymoses or lesions. Cool and dry. HEAD: Atraumatic. Normocephalic. No temporal or scalp tenderness. EYES: Pupils equal round and reactive. Extraocular motions intact. No scleral icterus. No injection or drainage. ENT: Nose without bleeding, purulent drainage or septal hematoma. Throat without erythema, tonsillar hypertrophy or exudate. Uvula midline. Airway patent. NECK: Trachea midline. No JVD or lymphadenopathy. Supple, nontender, no meningeal signs. CARDIOVASCULAR: Regular rate and rhythm without murmurs, gallops, or rubs. RESPIRATORY: Clear to auscultation. Breath sounds equal bilaterally. No wheezes , rales, or rhonchi. GASTROINTESTINAL: Abdomen soft, non-tender, nondistended. No hepato-splenomegaly , or palpable masses. No guarding. MUSCULOSKELETAL: Extremities without clubbing, cyanosis, or edema. Mild tenderness to palpation of upper anterior thighs. NEUROLOGICAL: Awake and alert. Cranial nerves II through XII intact. Motor and sensory grossly within normal limits. Five out of 5 muscle strength in all muscle groups. Normal speech. PSYCH: Mood and affect appropriate. Medications and IVs Current Medications Medications (Trade) Dose Ordered Sig/Mack Route Start Time Stop Time Status Last Admin (NS Flush) 2 ml UNSCH PRN IVF 04/25/17 23:45 (NS Flush) 2 ml UNSCH PRN IV FLUSH 04/26/17 02:00 (NS Flush) 2 ml BID IV FLUSH 04/26/17 09:00 04/27/17 07:50 (Tylenol) 500 mg Q4H PRN PO 04/26/17 02:00 ([place] 7.5-325 Mg) 1 tab Q4H PRN PO 04/26/17 02:00 (Morphine Inj) 2 mg Q4H PRN IV PUSH 04/26/17 02:00 (Nitrostat Sl) 0.4 mg Q5M PRN SL 04/26/17 02:00 (Eliquis) 5 mg BID PO 04/26/17 10:45 Future Hold 04/27/17 07:49 (Cymbalta Dr) 60 mg DAILY PO 04/27/17 09:00 04/27/17 07:49 (Tricor) 145 mg DAILY PO 04/27/17 09:00 04/27/17 07:49 (Synthroid) 150 mcg DAILY@0600 PO 04/26/17 10:45 04/27/17 05:26 (Lopressor) 25 mg BID PO 04/26/17 10:45 04/26/17 20:09 Patient Own Medication PT OWN MED: RESTA... BID EACH EYE 04/26/17 21:00 04/26/17 21:00 (Pravachol) 40 mg DAILY PO 04/26/17 10:30 04/27/17 07:49 (Detrol La) 4 mg DAILY PO 04/26/17 10:30 04/27/17 07:50 (Duoneb Neb) 1 ampule Q2HR NEB PRN NEB 04/26/17 10:15 (Diovan) 160 mg DAILY PO 04/26/17 10:45 04/27/17 07:49 (Hydrodiuril) 25 mg DAILY PO 04/26/17 10:45 04/27/17 07:49 (Vitamin B12 Inj) 1,000 mcg ONCE ONCE IM 04/27/17 11:45 04/27/17 11:46 A/P Assessment and Plan Elevated troponins Possibly secondary to atrial fibrillation as she says her heart rate went as high as 141 at home. Troponin peaked at 0.58. She also had respiratory distress associated with anxiety which could have contributed. EKG with known left bundle branch block. She denies any chest pain. Stress test with no evidence of acute ischemia. Normal ejection fraction was noted. Cardiology consultation appreciated. LDL noted to be 97. - Monitor on telemetry. - Continue cardiac regimen. - A1c pending. Right arm pain The patient describes pain in her right elbow and her right fingers. Her symptoms are getting better. She thinks it may have been secondary to carrying oxygen tanks the other day. Examination was unremarkable. Seems resolved at this time. - Pain control as needed. - Physical therapy. Atrial fibrillation The patient said her monitor at home showed a heart rate is high as 141 prior to presentation. Heart rate currently controlled. - continue metoprolol and Eliquis. - monitor on telemetry. - echo pending. COPD On 2L NC at home. Breathing seems stable at this time. CXR unremarkable. - continue home regimen. Hold Spiriva and give Duonebs as needed. - incentive spirometry. Weakness/ Depression The patient endorses low energy and weakness. Likely secondary to depression as she endorses a depressed mood and anxiety. B12 level at the low level of normal. TSH WNL. - PCP follow-up for trial of antidepressants. - B12 IM x 1. - PT eval. Renal insufficiency Creatinine seems stable. - Follow BMP and avoid nephrotoxic agents. Hypokalemia Possibly secondary to decreased by mouth intake. - Replete and monitor. Resolved. Thigh pain Located on the anterior upper thighs. Seems musculoskeletal. On Eliquis, and not suspicious for DVT. - encourage ambulation. - pain control as needed. PPx: Eliquis Discharge Planning d/c home Zeferino Harmon DO Apr 27, 2017 11:51
[2017-04-27 15:51] LABS: HEMOGLOBIN A1a 0.9 %; HEMOGLOBIN A1b 2.1 %; HEMOGLOBIN Ao 83.7 %; HEMOGLOBIN LA1C 2.3 %; HEMOGLOBIN P3 4.1 %
== END 2017-04-27 13:56 | disposition home or self-care (01) ==
LOC: NEPC 23:05 → NEDA 04-26 01:52 → NEPGCP 04-26 02:44
PROVIDERS: ADMIT Hospitalist; ATTEND Hospitalist
DX: J44.9 Chronic obstructive pulmonary disease, unspecified (principal); I12.9 Hypertensive chronic kidney disease with stage 1 through stage 4 chronic kidney disease, or unspecified chronic kidney disease; N18.3 Chronic kidney disease, stage 3 (moderate); R07.9 Chest pain, unspecified; R53.1 Weakness; M79.601 Pain in right arm; R06.02 Shortness of breath; I48.91 Unspecified atrial fibrillation; E78.5 Hyperlipidemia, unspecified; D64.9 Anemia, unspecified; N39.3 Stress incontinence (female) (male); R73.9 Hyperglycemia, unspecified; Z99.81 Dependence on supplemental oxygen; Z79.01 Long term (current) use of anticoagulants
CPT/HCPCS: 71010; 78452; 80053; 80061; 81001; 82550; 82552; 82607; 83036; 83735; 83880; 84443; 84484; 85025; 85610; 85730; 87086; 93005; 93017; 96360; 96372; 97162; 99285; A9502; G0378; G8987; G8988; J2785; J3420; J7040